=== PATIENT | male | born 1975 | race Caucasian/White ===

== ENCOUNTER → 2018-11-04 14:53 | Outpatient (CLI) | payer MEDICAID | END | disposition home or self-care (01) | LOC: D.HCCARDIO 10-29 09:00 | PROVIDERS: ATTEND Internal Medicine Cardiovascular Disease | DX: R07.9 Chest pain, unspecified (principal) ==

== ENCOUNTER 2018-11-13 08:49 | Outpatient (CLI) | payer MEDICAID ==
[~2018-11-13] VITALS: Ht 182.9 cm; Wt 85.0 kg
--- NOTE | ~2018-11-13 | HEMODYNAMI ---
PATIENT:JASMINA SYKES MEDICAL RECORD: [id number] : 75 LOCATION:DGingerCAT ADMISSION DATE: 11/13/18 Generatedon:11/13/201813:22 Patient name: JASMINA SYKES Patient #: [id number] SSN: : 1975 Date of study: 11/13/2018 Page: Of Hemodynamic Procedure Report Patient Data Patient Demographics Procedure consent was obtained First Name: JASMINA Gender: Male Last Name: MONY : 1975 [facility] Initial: RENEE Age: 43 year(s) Patient #: [id number] Race: Unknown Additional ID: [id number] Contact details Address: [address] [place] [address] State: [place] City: [place] Zip code: [address] Past Medical History Allergies: No known allergies Admission Admission Data Admission Date: 11/13/2018 Admission Time: 8:49 Weight (lbs.): 187 Weight (kg.): 84.82 Lab Results Lab Result Date: 11/13/2018 Lab Result Time: 0:00 Biochemistry Name Units Result Min Max BUN mg/dl 21 --(----)-* 7 18 Creatinine mg/dl 0.9 --(-*--)-- 0.6 1.3 CBC Name Units Result Min Max Hematocrit % 49.1 --(--*-)-- 42 54 Hemoglobin g/dl 17.3 --(---*)-- 13.5 17.5 Procedure Procedure Types Cath Procedure Diagnostic Procedure LHC LHC w/Coronaries Procedure Description Procedure Date Procedure Date: 11/13/2018 Procedure Start Time: 13:14 Procedure End Time: 13:20 Procedure Staff Name Function Kilo Pedroza MD Performing Physician Danny Knutson RN Grain Unloader Machine Savana Gómez RT Monitor Argenis Cardona RT Scrub Caleb Espinoza RN Nurse Procedure Data Cath Procedure Fluoroscopy Diagnostic fluoroscopy Total fluoroscopy Time: 0.7 time: 0.7 min min Diagnostic fluoroscopy Total fluoroscopy dose: dose: 93.4 mGy 93.4 mGy Contrast Material Contrast Material Type Amount (ml) Isovue 300 24 Entry Location Entry Primary Successful Side Size Upsize Upsize Entry Closure Mike ccessful Closure Location (Fr) 1 (Fr) 2 (Fr) Remarks Device Remarks Radial Right 6 Fr Mechanical TR artery Short Compression Estimated blood loss: 10 ml Diagnostic catheters Device Type Used For End Catheter Placement DIAGNOSTIC [place] 110cm 5 Procedure Fr catheter ([id number]) Procedure Complications No complications Procedure Medications Medication Administration Route Dosage 0.9% NaCl I.V. 100 ml/hr Oxygen etCO2 Nasal cannula 2 l/min Heparin Flush Bag added to field 2 bags (1000units/500ml NS) Lidocaine 2% added to field 20 Radial Cocktail added to field 1 syringe (Verapamil 2mg/Nitro 400mcg/Heparin 1500units) Versed I.V. 2 mg Fentanyl I.V. 100 mcg Radial Cocktail I.A. 1 syringe (Verapamil 2mg/Nitro 400mcg/Heparin 1500units) Hemodynamics Rest HGB: 17.3 (g/dl) Heart Rate: 55 (bpm) Snapshots Pre Cath Intra NCS Post Cath Vital Signs Time Heart Resp SPO2 etCO2 NIBP Rhythm Pain Sedation Rate (ipm) (%) (mmHg) (mmHg) Status Level (bpm) 13:03:38 59 9 99 36.9 107/63(83) NSR 0 (11) 10(A) , No pain 13:07:48 57 9 95 20.3 120/57(87) NSR 0 (11) 10(A) , No pain 13:12:02 58 20 91 32.4 105/58(83) NSR 0 (11) 10(A) , No pain 13:16:10 56 13 95 45.9 108/59(85) NSR 0 (11) 9(A) , No pain 13:20:18 56 11 97 39.1 109/59(82) NSR 0 (11) 9(A) , No pain Medications Time Medication Route Dose Verified Delivered Reason Notes Effectiveness by by 13:01:53 0.9% NaCl I.V. 100 Caleb Caleb Per ml/hr Alexis Espinoza physician RN RN 13:02:03 Oxygen etCO2 2 l/min Caleb Caleb for low 02 Nasal Alexis Espinoza sats cannula RN RN 13:02:15 Heparin Flush added 2 bags Caleb Caleb used for Bag to Lorigan Lorigan procedure (1000units/500ml field RN RN NS) 13:02:27 Lidocaine 2% added 20ml Caleb Caleb for local to vial Lorigan Lorigan anesthetic field RN RN 13:02:43 Radial Cocktail added 1 Caleb Caleb used for (Verapamil to syringe Lorigan Lorigan procedure 2mg/Nitro field RN RN 400mcg/Heparin 1500units) 13:07:37 Versed I.V. 2 mg Caleb Caleb for sedation Alexis Espinoza RN RN 13:07:45 Fentanyl I.V. 100 mcg Caleb Caleb for sedation Alexis Espinoza RN RN 13:15:34 Radial Cocktail I.A. 1 Caleb Kilo for (Verapamil syringe Lorigan Tauth MD vasodilation 2mg/Nitro RN 400mcg/Heparin 1500units) Procedure Log Time Note 12:42:14 Signed procedure consent form obtained from patient. 12:42:15 Diagnostic Cath status Elective 12:42:16 Time tracking: Regular hours (M-F 7:00 - 5:00) 12:42:20 Plan of Care:Hemodynamics will remain stable., Cardiac rhythm will remain stable., Comfort level will be maintained., Respiratory function will remain adequate., Patient/ family verbilizes understanding of procedure., Procedure tolerated without complication., Recovers from procedure without complications.. 12:42:23 Danny Knutson RN sent for patient. Start room use. 12:42:35 H&P Date Dictated: 10/20/2018 Within 30 days and on chart., H&P Addendum completed by physician on day of procedure. (MUST COMPLETE FOR ALL OUTPATIENTS). 12:42:44 Patient allergic to No known allergies 12:46:34 Lab Result : BUN 21 mg/dl 12:46:34 Lab Result : Hemoglobin 17.3 g/dl 12:46:34 Lab Result : Creatinine 0.9 mg/dl 12:46:34 Lab Result : Hematocrit 49.1 % 12:46:55 Patient Weight : 187 lbs 12:47:06 Patient received from Pre/Post Procedure Room to CCL 3 Alert and oriented. Tansferred to table in Supine position. 12:47:07 Warm blankets applied, and gene hugger turned on for patient comfort. 12:47:08 Correct patient and procedure confirmed by team. 12:47:08 ECG and BP/O2 sat monitors applied to patient. 13:01:53 0.9% NaCl 100 ml/hr I.V. was administered by Caleb Espinoza RN; Per physician; 13:02:03 Oxygen 2 l/min etCO2 Nasal cannula was administered by Caleb Espinoza RN; for low 02 sats; 13:02:15 Heparin Flush Bag (1000units/500ml NS) 2 bags added to field was administered by Caleb Espinoza RN; used for procedure; 13:02:18 Vital chart was started 13:02:19 Baseline sample Acquired. 13:02:23 Rhythm: sinus rhythm 13:02:25 Full Disclosure recording started 13:02:27 Lidocaine 2% 20ml vial added to field was administered by Caleb Espinoza RN; for local anesthetic; 13:02:33 Is the patient allergic to Iodine/contrast media? No. 13:02:42 Is patient on blood thinner?No 13:02:43 Radial Cocktail (Verapamil 2mg/Nitro 400mcg/Heparin 1500units) 1 syringe added to field was administered by Caleb Espinoza RN; used for procedure; 13:02:44 Patient diabetic? No. 13:02:48 Snore? Yes 13:02:50 Sleep apnea? No 13:02:54 Dentures? No ? 13:02:58 Patient pain scale 0/10 ?. 13:03:04 IV patent on arrival in left forearm with 0.9% NaCl at [facility]. 13:03:08 Lab results completed and on chart. 13:03:12 Right Radial & Right Groin area was prepped with chlora-prep and draped in sterile fashion 13:03:13 Alarms reviewed by R. N. 13:03:13 Sharps counted by scrub and verified by R.N. 13:03:16 Physician paged 13:03:21 Use device set Radial Dx or PCI 13:03:22 ACIST Syringe (32365) opened to sterile field. 13:03:23 Medline Cath Pack ([id number]) opened to sterile field. 13:03:23 Bag Decanter (2002S) opened to sterile field. 13:03:24 DIAGNOSTIC WIRE .035 260cm J wire (207729) opened to sterile field. 13:03:24 ACIST Hand Control (43910) opened to sterile field. 13:03:25 ACIST Manifold (01862) opened to sterile field. 13:03:26 Tegaderm 4 x 4 (1626W) opened to sterile field. 13:03:28 MBrace Wrist Support ([id number]) opened to sterile field. 13:03:31 SHEATH 6FR Slender (53-8775) opened to sterile field. 13:06: Physician arrived 13:06: --------ALL STOP TIME OUT------ 13::28 Final Timeout: patient, procedure, and site verified with staff and physician. All members of the team are in agreement. 13:06:30 Right Radial & Right Groin site verified by team. 13:06:34 Maximum allowable Isovue 300 dose 300ml. Physician notified. (300ml for normal creatinines. For patients with creatinine of 1.7 or higher multiply weight(kg) x 5 divided by creatinine.) 13:06:38 Fire Safety Assessment: A--An alcohol-based skin anteseptic being used preoperatively., C--Open oxygen or nitrous oxide is being used., D--An ESU, laser, or fiber-optic light is being used. 13:06:41 Physical assessment completed. ASA score P 2 - A patient with mild systemic disease as per Klio Pedroza MD. 13:06:47 Sedation plan: IV Moderate Sedation Medication:Versed, Fentanyl 13:07:37 Versed 2 mg I.V. was administered by Caleb Espinoza RN; for sedation; 13:07:45 Fentanyl 100 mcg I.V. was administered by Caleb Espinoza RN; for sedation; 13:12:47 Zero performed for pressure channel P1 13:14:45 Procedure started. 13:14:51 Local anesthetic to right radial artery with Lidocaine 2% by Kilo Pedroza MD.INITIAL ACCESS ONLY 13:15:34 Radial Cocktail (Verapamil 2mg/Nitro 400mcg/Heparin 1500units) 1 syringe I.A. was administered by Kilo Pedroza MD; for vasodilation; 13:15:40 A 6 Fr Short sheath was inserted into the Right Radial artery 13:15:55 A DIAGNOSTIC [place] 110cm 5 Fr catheter (338448) was advanced over the wire and used for Procedure. 13:16:00 LV angiography performed. 13:16:39 LV gram done using MCGEE 13:16:55 EF : 50 % 13:17:15 LCA angiography performed. 13:18:02 LCA angiography performed. 13:18:03 RCA angiography performed. 13:18:06 Catheter removed. 13:18:09 TR BAND Standard ([id number]) opened to sterile field. 13:18:34 Sheath removed intact; hemostasis achieved with Mechanical Compression to the Right Radial artery. 13:18:36 Procedure ended.(Physican Out) 13:19:03 Fluoroscopy time 00.70 minutes. 13:19:09 Fluoroscopy dose: 93.4 mGy 13:19:09 Flurop Dose total: 93.4 13:19:37 Contrast amount:Isovue 300 24ml. 13:19:39 Sharps counted by scrub and verified by R.N. 13:19:42 TR band inflated with 10cc of air. 13:19:44 Insertion/operative site no bleeding no hematoma. 13:19:49 Post right radial artery:stable 13:19:51 Post Procedure Pulses reassessed and unchanged 13:19:57 Post-procedure physical assessment completed. ASA score P 2 - A patient with mild systemic disease as per Kilo Pedroza MD. 13:20:00 Post procedure rhythm: sinus rhythm 13:20:05 Estimated blood loss: 10 ml 13:20:07 Post procedure instruction explained to patient.Patient verbalizes understanding. 13:20:15 Procedure and supply charges have been captured, reviewed, submitted and are correct. 13:20:38 Procedure Complication : No complications 13:20:40 Vital chart was stopped 13:20:41 See physician's report for complete and final results. 13:20:42 Report given to Pre/Post Procedure Room. 13:20:45 Patient transfered to Pre/Post Procedure Room with Stretcher. 13:20:47 Procedure ended. 13:20:47 Full Disclosure recording stopped 13:20:52 End room use (Document Last) Device Usage Item Name Manufacture Quantity Catalog Hospital Part Current Minimal Lot# / Number Charge Number Stock Stock Serial# Code ACIST Acist 1 00607 173305 108904 088988 20 Alta Devices (24280) Systems Inc Medline Medline 1 [id number] 925718 30113 527687 5 Cath Pack ([id number]) Bag Microtek 1 908862 96959 081695 5 Dec[employer] Inc[employer] () DIAGNOSTIC [place] 1 639156 770626 660850 724933 30 WIRE .035 260cm J wire (182697) ACIST Hand Acist 1 61143 379904 041623 957046 5 Control Medical (10830) Systems Inc ACIST Acist 1 61699 463969 197104 612827 5 Manifold Medical (02595) Systems Inc Tegaderm 4 3M 1 1626W 288354 520503 620847 5 x 4 (1626W) MBrace Advanced 1 140-0250-00 102530 23774 063684 5 Wrist Vascular Support Dynamics ([id number]) SHEATH 6FR Terumo 1 [id number] 899428 260415 206838 5 Slender (80-1060) DIAGNOSTIC Terumo 1 40-8552 230059 277154 433595 5 [place] 110cm 5 Fr catheter (038661) TR BAND Terumo 1 [id number] 520006 367043 394467 40 Standard ([id number]) Signature Audit Sinclair Stage Time Signature Unsigned Intra-Procedure 11/13/2018 Savana Gómez 1:22:34 PM RT(R) Signatures Monitor : Savana Gómez Signature : RT Date : Time : [address] [place] [address]
[2018-11-13] MEDS ORDERED: LISINOPRIL10 MG PO (09:03)
[2018-11-13] MEDS ORDERED: BUPRENORPHIN-N1 EACH SL (09:04)
[2018-11-13] MEDS ORDERED: CARTIA XT120 MG PO (09:05)
[2018-11-13 09:12] VITALS: BP 141/76; Ht 182.9 cm; Wt 85.0 kg
[2018-11-13 09:45] LABS: BASOPHILS 0.3 % (0-2); EOSINOPHILS 3.9 % (0-7); HEMATOCRIT 49.1 % (42.0-54.0); HEMOGLOBIN 17.3 g/dL (13.5-17.5); IMMATURE GRANULOCYTES 0.1 % (0-5); LYMPHOCYTES 29.6 % (15-50); MCH 29.6 pg (26.0-34.0); MCHC 35.2 g/dL (31.0-37.0); MCV 83.9 fL (80.0-100.0); MONOCYTES 11.2 % (2-11); NEUTROPHILS 54.9 % (40-80); PLATELET COUNT 174 10x3/uL (130-400); RBC 5.85 10x6/uL (4.20-6.10); RDW 12.3 % (11.5-14.5); WBC 7.5 10x3/uL (4.8-10.8)
[2018-11-13 10:06] LABS: CALC OSMOLALITY 283 mosm/kg (275-300); CALCIUM 9.2 mg/dL (8.5-10.1); CARBON DIOXIDE 30.1 mmol/L (21.0-32.0); CHLORIDE - SERUM 102 mmol/L (98-107); CREATININE - SERUM 0.9 mg/dL (0.6-1.3); SODIUM 136 mmol/L (136-145); UREA NITROGEN 21 mg/dL (7-18); eGFR NON AFRICAN AMERICAN > 90 mL/min (90-120)
[2018-11-13 10:07] LABS: GLUCOSE 256 mg/dL (74-106)
--- NOTE | 2018-11-13 13:45 | NUR ---
2L NC, NO RESP DISTRESS. RIGHT WRIST TR BAND CDI, NO BLEEDING OR HEMATOMA NOTED. VSS. FAMILY AT BEDSIDE, CALL LIGHT WITHIN REACH.
--- NOTE | 2018-11-13 14:15 | NUR ---
RESTING QUIETLY WITH EYES CLOSED. RIGHT WRIST TR BAND CDI, NO BLEEDING OR HEMATOMA NOTED. DENIES ANY NEEDS. VSS. WILL CONTINUE TO MONITOR.
--- NOTE | 2018-11-13 14:30 | NUR ---
3CC OF AIR REMOVED FROM TR BAND WITH NO BLEEDING NOTED. VSS. WILL CONTINUE TO MONITOR.
--- NOTE | 2018-11-13 14:50 | NUR ---
3CC OF AIR REMOVED FROM TR BAND WITH NO BLEEDING NOTED.
--- NOTE | 2018-11-13 15:10 | NUR ---
3CC OF AIR REMOVED FROM TR BAND WITH NO BLEEDING NOTED. SIPPING ON DRINK AND EATING SANDWICH WITH NO C/O NAUSEA. VSS. WILL CONTINUE TO MONITOR.
--- NOTE | 2018-11-13 15:20 | NUR ---
DISCHARGE INSTRUCTIONS GIVEN, VERBALIZED UNDERSTANDING. LEFT PIV D/C'D WITH CATHETER INTACT, BAND AID TO SITE. UP TO BEDSIDE TO GET DRESSED.
--- NOTE | 2018-11-13 15:32 | NUR ---
REMAINING AIR REMOVED FROM TR BAND WITH NO BLEEDING NOTED. DRESSING TO SITE. TAKEN OUT VIA WHEELCHAIR BY [facility] ASSISTANTS TEACHER. LEFT FACILITY WITH FAMILY AND ALL PERSONAL BELONGINGS.
--- NOTE | 2018-11-20 11:27 | OP ---
PATIENT NAME: JASMINA SYKES MEDICAL RECORD: [id number] :75 LOCATION:D.CAT ADMISSION DATE: SURGEON: EDINOSN SOUZA MD DATE OF OPERATION: 11/13/2018 PROCEDURES: 1. Left heart catheterization. 2. Selective coronary angiography. 3. Left ventriculogram. INDICATION: Angina and coronary artery disease. PROCEDURE IN DETAIL: After informed consent was obtained and after a detailed description risks, benefits as well as alternative therapies, the patient elected to proceed with angiogram and heart catheterization. The right radial area was prepped and draped in normal sterile fashion. Right radial artery was cannulated via modified Seldinger technique with placement of 6-[place]izen [place] sheath. All catheters exchanged through this sheath. FINDINGS: Left ventriculogram was performed in standard 30-degree MCGEE view, reveals good cardiac wall motion throughout all segments. Overall ejection fraction estimated 60%. SELECTIVE CORONARY ANGIOGRAPHY: Left main, left anterior descending, left circumflex, right coronary artery are all smooth-walled vessels with no angiographic evidence of coronary artery disease. OVERALL IMPRESSION: 1. No angiographic evidence of coronary artery disease. 2. Normal left heart pressures. 3. Normal left ventricular systolic function. Chest pain is noncardiac in etiology. Stress test was false positive. No further cardiac workup or treatment is necessary. TRANSINT:[id number] Voice Confirmation ID: [id number] DOCUMENT ID: [id number] EDINSON SOUZA MD at 1127 CC: [id number] DICTATION DATE: 11/13/18 1321 WIRELINE OPERATOR: 11/13/18 1526 [facility] CLI 11/13/18 [place] [id number]
== END 2018-11-13 15:32 | disposition home or self-care (01) ==
LOC: D.CATH 08:49
PROVIDERS: ATTEND Internal Medicine Interventional Cardiology
DX: R07.89 Other chest pain (principal); Z01.812 Encounter for preprocedural laboratory examination

== ENCOUNTER 2019-03-11 17:57 | Emergency (ER) | payer MEDICAID ==
[~2019-03-11] VITALS: Ht 182.9 cm; Wt 85.5 kg
[~2019-03-11 17:57] MED LIST: BUPRENORPHIN-N1 EACH SL; CARTIA XT120 MG PO; LISINOPRIL10 MG PO
[2019-03-11 18:10] VITALS: Ht 182.9 cm; Wt 85.5 kg
[2019-03-11] MEDS ORDERED: TOPROL XL50 MG PO (18:12)
[2019-03-11] MEDS ORDERED: TRESIBA FL100 UNIT/1 SC (18:13)
[2019-03-11 18:36] LABS: BASOPHILS 0.3 % (0-2); EOSINOPHILS 3.8 % (0-7); HEMATOCRIT 46.3 % (42.0-54.0); HEMOGLOBIN 16.9 g/dL (13.5-17.5); IMMATURE GRANULOCYTES 0.2 % (0-5); LYMPHOCYTES 46.7 % (15-50); MCH 29.4 pg (26.0-34.0); MCHC 36.5 g/dL (31.0-37.0); MCV 80.5 fL (80.0-100.0); PLATELET COUNT 173 10x3/uL (130-400); RBC 5.75 10x6/uL (4.20-6.10); RDW 12.4 % (11.5-14.5); WBC 8.7 10x3/uL (4.8-10.8)
[2019-03-11 18:44] LABS: INR 1.09 (0.85-1.17); PROTIME 13.6 SECONDS (11.6-15.0)
[2019-03-11 18:48] LABS: ALBUMIN 3.8 g/dL (3.4-5.0); ALKALINE PHOSPHATASE 87 U/L (46-116); ALT (SGPT) 15 U/L (10-68); BILIRUBIN - TOTAL 0.58 mg/dL (0.2-1.3); CALC OSMOLALITY 280 mosm/kg (275-300); CARBON DIOXIDE 27.7 mmol/L (21.0-32.0); CHLORIDE - SERUM 105 mmol/L (98-107); CREATININE - SERUM 0.9 mg/dL (0.6-1.3); PROTEIN - SERUM 7.1 g/dL (6.4-8.2); SODIUM 140 mmol/L (136-145); UREA NITROGEN 17 mg/dL (7-18); eGFR NON AFRICAN AMERICAN > 90 mL/min (90-120)
[2019-03-11 18:50] LABS: GLUCOSE 98 mg/dL (74-106)
[2019-03-11 19:01] LABS: CKMB 10.6 U/L (0.0-3.6); CREATINE KINASE 340 UL (21-232); MAGNESIUM - SERUM 1.9 mg/dL (1.8-2.4)
[2019-03-11 19:10] LABS: TROPONIN-I < 0.017 ng/mL (0.000-0.060)
[2019-03-11] MEDS ORDERED: ZOFRAN8 MG PO (20:31)
[2019-03-11 23:00] VITALS: BP 127/73
== END 2019-03-11 22:50 | disposition home or self-care (01) ==
LOC: D.ER 17:57
PROVIDERS: Emergency Medicine
DX: I48.91 Unspecified atrial fibrillation (principal); F17.200 Nicotine dependence, unspecified, uncomplicated; E11.9 Type 2 diabetes mellitus without complications; I10 Essential (primary) hypertension; K21.9 Gastro-esophageal reflux disease without esophagitis

== ENCOUNTER 2019-04-07 19:08 | Observation (INO) | payer MEDICAID ==
[~2019-04-07] VITALS: Ht 182.9 cm; Wt 84.5 kg
[~2019-04-07 19:08] MED LIST changes: +TOPROL XL50 MG PO; +TRESIBA FL100 UNIT/1 SC; +ZOFRAN8 MG PO
[2019-04-07 19:46] VITALS: BP 120/90
[2019-04-07 20:04] LABS: BASOPHILS 0.2 % (0-2); EOSINOPHILS 3.4 % (0-7); HEMOGLOBIN 17.2 g/dL (13.5-17.5); IMMATURE GRANULOCYTES 0.2 % (0-5); LYMPHOCYTES 42.9 % (15-50); MCH 29.6 pg (26.0-34.0); MCHC 35.1 g/dL (31.0-37.0); MCV 84.2 fL (80.0-100.0); MEAN PLATELET VOLUME 11.3 fL (7.4-10.4); MONOCYTES 8.3 % (2-11); PLATELET COUNT 195 10x3/uL (130-400); RBC 5.82 10x6/uL (4.20-6.10); RDW 12.5 % (11.5-14.5); WBC 8.3 10x3/uL (4.8-10.8)
[2019-04-07 20:24] LABS: APTT 31.3 SECONDS (22.8-39.4); INR 1.08 (0.85-1.17); PROTIME 13.5 SECONDS (11.6-15.0)
[2019-04-07 20:27] LABS: ALBUMIN 3.9 g/dL (3.4-5.0); ALKALINE PHOSPHATASE 89 U/L (46-116); ALT (SGPT) 14 U/L (10-68); CALC OSMOLALITY 278 mosm/kg (275-300); CALCIUM 8.9 mg/dL (8.5-10.1); CARBON DIOXIDE 32.7 mmol/L (21.0-32.0); CHLORIDE - SERUM 102 mmol/L (98-107); CREATININE - SERUM 0.8 mg/dL (0.6-1.3); GLUCOSE 101 mg/dL (74-106); POTASSIUM - SERUM 3.9 mmol/L (3.5-5.1); PROTEIN - SERUM 7.4 g/dL (6.4-8.2); SODIUM 139 mmol/L (136-145); UREA NITROGEN 15 mg/dL (7-18); eGFR NON AFRICAN AMERICAN > 90 mL/min (90-120)
[2019-04-07 20:38] LABS: CKMB 8.1 U/L (0.0-3.6); CREATINE KINASE 255 UL (21-232)
[2019-04-07 20:44] LABS: TROPONIN-I < 0.017 ng/mL (0.000-0.060)
[2019-04-07 21:00] VITALS: BP 120/77
--- NOTE | 2019-04-07 21:40 | NUR ---
PT INFORMED OF ROOM NUMBER ON FLOOR HE WILL BE GOING TO WHEN IT BECOMES AVAILABLE. PT VERBALIZES UNDERSTANDING, DENIES ANY NEEDS AT THIS TIME.
--- NOTE | 2019-04-07 22:12 | NUR ---
PT GIVEN BLANKETS, DENIES ANY FURTHER NEEDS AT THIS TIME. CALL LIGHT WITHIN REACH, WILL CONTINUE TO MONITOR.
[2019-04-08] VITALS: BP 110/56
[2019-04-08 03:16] VITALS: BP 110/56; Ht 182.9 cm; Wt 84.5 kg
[2019-04-08 04:00] VITALS: BP 117/64
--- NOTE | 2019-04-08 04:23 | NUR ---
NO TELEMETRY AVAILABLE PER WIRE DRAWING SETTER
--- NOTE | 2019-04-08 07:20 | NUR ---
ASSESSMENT DONE. DENIES NEEDS
--- NOTE | 2019-04-08 09:13 | HP ---
PATIENT: JASMINA SYKES MEDICAL RECORD: [id number] ACCOUNT: [id number] LOCATION:[address] : 75 ADMISSION DATE: 04/07/19 PCP: MARCELLO HARPER MD HISTORY AND PHYSICAL EXAMINATION DATE OF ADMISSION: 04/07/2019 CHIEF COMPLAINT: "Feels like the last time I was in the ER and had to be shocked." HISTORY OF PRESENT ILLNESS: This is a 43-year-old male who presented with above complaint to the ER. He was seen in the ER on 03/11/2019 with palpitations, found to be in atrial fibrillation at that time and received a DC cardioversion and was discharged home. He states he has been having the same feelings since about noon on 04/07/2019. He was brought in to the ER. EKG showed atrial fibrillation with a rate of 83 and he was having shallow breathing. He is admitted. PAST MEDICAL AND SURGICAL HISTORY: He has diabetes, on insulin. His last A1c earlier this month was 8.6. He has hypertension. He had a recent diagnosis of atrial fibrillation last month. He has a history of drug addiction and is on Suboxone, this is handled by Dr. Vora. PAST SURGICAL HISTORY: Appendectomy. He had angiogram in October of 2018 that was reportedly unremarkable. DRUG ALLERGIES: None. HOME MEDICATIONS: Metoprolol ER 100, he takes one-half a day; lisinopril 10 mg a day; Tresiba insulin, he takes what sounds like a variable dose up to 60 units depending on if his blood sugars are high or not. He takes Zofran 8 mg every 6 to 8 hours p.r.n. nausea. Apparently, there was a prescription for diltiazem ER 120 to take twice a day and he has not been taking that, but his heart rate has been controlled. He has been taking testosterone injections once a week through the [facility] and they also give him anastrozole 1 mg. SOCIAL HISTORY: He is . 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 HABITS: He does smoke cigarettes daily. Denies alcohol use. Has occasional marijuana use. He states the last time was 3 weeks ago. FAMILY HISTORY: Mother is . She had diabetes and hypertension. Sister is alive. She has diabetes. REVIEW OF SYSTEMS: GENERAL: No major weight changes. HEENT: No particular sinus or allergy problems. RESPIRATORY: No history of asthma or emphysema. CARDIAC: He has been seeing Dr. Pedroza, recent diagnosis of AFib, angiogram earlier this year was reportedly negative. GASTROINTESTINAL: He has nausea and heartburn. GENITOURINARY: No significant problems there. MUSCULOSKELETAL: No significant problems there. NEUROLOGIC: No seizures. No migraines. PSYCHIATRIC: Denies depression or melancholia. HISTORY AND PHYSICAL [id number] MONYJASMINA PHYSICAL EXAMINATION: VITAL SIGNS: Temperature 97.3, pulse 67, respirations 18, blood pressure 117/64, O2 sat is 98%. GENERAL: He does not appear in acute distress at this time. He does not feel like his heart is beating irregularly now. HEENT: Grossly within normal limits. NECK: Supple. No JVD or bruit. HEART: Actually is bradycardic in the 50s and is regular at this time. LUNGS: Clear. ABDOMEN: Soft. EXTREMITIES: No edema. NEUROLOGICAL: Essentially unremarkable. LABORATORY DATA: Chest x-ray is done showing no acute process. EKG showed AFib with a rate of 83. CBC is normal. Basic metabolic panel is unremarkable. Liver functions were okay. Magnesium 2.0, troponin less than 0.017. INR 1.08. ASSESSMENT: 1. Atrial fibrillation with controlled rate. 2. Diabetes. 3. History of hypertension. PLAN: He is admitted, placed on telemetry. Cardiology is consulted. Other tests or procedures as warranted. TRANSINT:[id number] Voice Confirmation ID: [id number] DOCUMENT ID: [id number] MARCELLO HARPER MD at 0913 CC: [id number] DICTATION DATE: 04/08/19800 [employer]ER [employer]: 04/08/19 0857 ADM IN [facility] [address] [id number]
--- NOTE | 2019-04-08 10:13 | NUR ---
I have reviewed this patient and I concur with the Shift Assessment completed by the Licensed Practical Nurse today this shift.
[2019-04-08 10:44] VITALS: BP 123/68
[2019-04-08] MEDS ORDERED: PROPAFENONE HC225 MG PO ×2 (12:49→14:00)
--- NOTE | 2019-04-08 14:00 | NUR ---
WRITTEN SCRIPT TO PATIENT FOR RYTHMOL 225 MG #20.
--- NOTE | 2019-04-08 14:31 | NUR ---
DC HOME PER PERSONAL CAR
--- NOTE | 2019-04-09 07:06 | MORECARE ---
CASE MANAGEMENT DISCHARGE SUMMARY PATIENT: JASMINA SYKES UNIT: [id number] ADM DATE: 04/07/19 AGE: 43 : 75 SEX: M ROOM/BED: D.3563 AUTHOR: VIKTORIA LOMELI PHYSICIAN: REFERRING PHYSICIAN: RUBINA LEWIS MD DATE OF SERVICE: 04/09/19 Discharge Plan Patient Name: JASMINA SYKES Facility: [facility]:[place] : 1975 Planned Disposition: Home Anticipated Discharge Date: 04/08/19 Discharge Date: 04/08/2019 Expected LOS: 1 Initial Reviewer: [email or web address] Initial Review Date: 04/09/2019 Generated: 04/09/19 8:05 am Patient Name: JASMINA SYKES Page 74085 at 0706 All edits/amendments must be made on the electronic document DICTATION DATE: 04/09/19704 FIELD CROP FARM WORKER: JAIRO 04/09/19704 RPT#: [id number] DC DATE:04/08/19 STATUS: DIS IN [facility] [address] [place] [address] END OF REPORT
--- NOTE | 2019-04-12 13:56 | CN ---
PATIENT NAME:BLAKE SYKES MEDICAL RECORD: [id number] : 75 LOCATION:. D.2123 ADMIT DATE: 04/07/19 ACCOUNT: [id number] CONSULTING PHYSICIAN: ARIANNE EASLEY MD REFERRING PHYSICIAN: RUBINA LEWIS MD DATE OF CONSULTATION: 04/08/2019 HISTORY OF PRESENT ILLNESS: Blake Sykes is a 43-year-old gentleman with no known history of coronary artery disease, has a history of atrial fibrillation, paroxysmal, status post cardioversion times 1. CHADS score is only 1, had atrial fibrillation after eating a big meal yesterday, converted spontaneously, admitted for overnight observation. We are asked to see him concerning his cardiovascular status. PAST MEDICAL HISTORY: Includes: 1. History of hypertension. 2. Diabetes mellitus. MEDICATIONS: Include Lisinopril 10 mg p.o. daily, Sinemet 10 mg p.o. daily, metoprolol 50 mg p.o. daily, Suboxone 1 tablet every day, insulin 20 units subQ every morning. 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 Has a 25-year smoking history. No alcohol use. REVIEW OF SYSTEMS: The patient reports easy bruising but reports no swollen glands. The patient reports no fever, no night sweats, no significant weight gain, no significant weight loss. No significant exercise tolerance. The patient reports no dry eyes, no irritation, no vision change. Patient reports no difficulty hearing and no ear pain. Patient reports no frequent nose bleeds or nose and sinus problems. Patient reports on arm pain on exertion. No shortness of breath while lying down. No history of heart murmur. Patient reports no cough, no wheezing or coughing up blood. Patient reports no abdominal pain, no vomiting. Normal appetite. No diarrhea and not vomiting blood. No nausea and no constipation. Patient reports no incontinence. No difficulty urinating. No hematuria. No increased frequency. Patient reports no muscle aches. No weakness, no arthralgias, no back pain. No swelling of the extremities. Patient reports no abnormal mole, no jaundice, no rashes. Reports no loss of consciousness. No weakness and no numbness. No seizures, dizziness, or headaches. The patient reports no depression, no sleep disturbance, feeling safe in a relationship and no alcohol abuse. Patient reports on fatigue. Reports no runny nose or sinus pressure. No itching, no hives, and no frequent sneezing. PHYSICAL EXAMINATION: GENERAL: No acute distress. VITAL SIGNS: Blood pressure 117/64, pulse 67 and regular. HEENT: Normocephalic, atraumatic. NECK: No JVD or bruit. HEART: Regular. A II/ systolic ejection murmur. LUNGS: Good air excursion. ABDOMEN: Soft, nontender. EXTREMITIES: Pulses 2+ with no edema. DIAGNOSTIC DATA: ECG without acute change. CONSULT REPORT [id number] BLAKE SYKES IMPRESSION: Paroxysmal atrial fibrillation. Discussed options at this point. Given rarity of the episodes, we would not start on NOAC at this point. We will plan on jcun-st-jye-pocket therapy. Further recommendations based on above. TRANSINT:[id number] Voice Confirmation ID: [id number] DOCUMENT ID: [id number] ARIANNE EASLEY MD at 1356 CC: [id number] DICTATION DATE: 04/08/1943 HOGSHEAD STOCK CLERK: 04/08/19 0939 DIS IN 04/08/19 [facility] [address] [place] [address]
== END 2019-04-08 14:31 | disposition home or self-care (01) ==
LOC: D.ER 19:08 → D.M2 20:58 → OBSVTIME 20:58 → D.M2 20:58
PROVIDERS: Family Medicine; ADMIT Family Medicine; ATTEND Family Medicine
DX: I48.0 Paroxysmal atrial fibrillation (principal); E11.9 Type 2 diabetes mellitus without complications; I10 Essential (primary) hypertension; F17.200 Nicotine dependence, unspecified, uncomplicated

== ENCOUNTER → 2019-10-06 14:28 | Outpatient (CLI) | payer MEDICAID ==
--- NOTE | ~2019-10-06 | EC ---
PATIENT:JASMINA SYKES DATE OF SERVICE: 10/06/19 SEX: M MEDICAL RECORD: [id number] DATE OF : 75 LOCATION:[facility] AGE OF PATIENT: 44 ADMISSION DATE: 10/06/19 REFERRING PHYSICIAN: INTERPRETING PHYSICIAN: ARIANNE EASLEY MD ECHOCARDIOGRAM REPORT ECHO CHARGES 4 ECHO COMPLETE Date: 10/06/19 CLINICAL DIAGNOSIS: A-FIB ECHOCARDIOGRAPHIC MEASUREMENTS (adult normal given) AC root (d.<3.7cm) 3.3 cm LV Septum d (<1.2 cm> 1.3 cm Valve Excursion 2.0 cm LV Septum (systole) 1.8 cm Left Atria (s.<4.0cm> 4.0 cm LVPW d(<1.2cm) 1.2 cm RV (d.<2.3cm) 3.3 cm LVPW (sytole) 1.8 cm LV diastole(<5.6CM) 5.7 cm MV E-F(>70mm/sec) cm LV systole 3.4 cm LVOT Diameter 2.1 cm MV exc.(>10mm) cm Est.ejection fraction (50-75%) % DOPPLER: LVIT cm/sec A 50.0 cm/sec E 125 cm/sec LA cm/sec RVSP 35.1 mmHg LVOT 110 cm/sec AOP1/2T m/s Asc. Ao 184 cm/sec RVOT 64.0 cm/sec RA cm/sec PA 118 cm/sec AV Gradient Peak 14.0 mmHg AV Mean 7.6 mmHg AV Area 1.9 cm MV Gradient Peak 7.0 mmHg MV Mean 2.8 mmHg MV Area cm COMMENTS: OP - HC Motion Picture Photographer: Maryanne TAPIAOE Ventilated Rib Fitter: 3 Dr. Blackwell TAPE# PACS Pericardial Effusion N DATE OF SERVICE: Adequate 2D, color flow imaging, spectral Doppler, and M-Mode. Mild LVH. LV internal dimension is normal. Wall motion is normal. EF is greater than or equal to 55%. Aortic valve is tricuspid. No evidence of stenosis by Doppler interrogation. Left atrium is normal at 4.0 cm. Mitral valve shows no prolapse. Trace MR. Right-sided chambers are grossly normal. Mild TR. ECHOCARDIOGRAM REPORT [id number] JASMINA SYKES TRANSINT:[id number] Voice Confirmation ID: [id number] DOCUMENT ID: [id number] ARIANNE EASLEY MD CC: [id number] DICTATION DATE: 10/07/19 1354 CHERRY PICKER OPERATOR: 10/07/19 1406 DEP CLI 10/06/19 [place] [id number] [place] [id number]
[~2019-10-06 14:28] MED LIST changes: +PROPAFENONE HC225 MG PO
== END | disposition home or self-care (01) ==
LOC: D.HCCECHO 14:28
PROVIDERS: ATTEND Internal Medicine Interventional Cardiology
DX: R06.00 Dyspnea, unspecified (principal)